=== PATIENT | male | born 1965 | race American Indian/Alaskan Native ===

== ENCOUNTER → 2019-12-04 | Emergency (ER) | payer MEDICAID ==
[~2019-12-04] VITALS: Ht 180.3 cm; Wt 89.4 kg
[~2019-12-04] MED LIST: ACCU-CHEK COMFORT CURVE STRIP VI SCH; CLINDAMYCIN 600MG IV 50 ML IV ONE; DAKI0.12 TOP; DEXTROSE (50%) 50ML SYRG IV PRN; InsuLIN REG 1unit/0.01ml Soln (100units/ml) IV ONE; InsuLIN REG 1unit/0.01ml Soln (100units/ml) SC SCH; LEVO750T64 PO; METF-372; MORPHINE SULF INJ 2 MG/ML SYRINGE 1ML IV PRN; NITROGLYCERIN 0.4 MG SL TAB SL PRN; PROMETHAZINE HCL 25 MG/ML 1ML IV PRN; SODIUM CHLORIDE 0.9% 1,000 ML IV ONE; SODIUM CHLORIDE 0.9% 1,000 ML IV SCH; VANCOMYCIN 1GM/250ML 250 ML IV ONE; VANCOMYCIN PER PHARMACY 0 MG IV SCH; levoFLOXacin 500MG 100 ML IV SCH; metroNIDAZOLE 500MG/100ML 100 ML IV SCH; traMADol HCL 50 MG TAB PO PRN
[2019-12-04 11:22] VITALS: BP 131/79
[2019-12-04 13:22] LABS: Basophils # (auto) 0 10 ^3/uL (0-0.2); Basophils % (auto) 0.5 % (0.0-2.0); Eosinophils # (auto) 0.1 10 ^3/uL (0-0.8); Eosinophils % (auto) 1.6 % (0.0-7.0); Hematocrit 36.4 % (41.0-53.0); Hemoglobin 11.7 g/dL (13.5-17.5); Lymphocytes # (auto) 1.2 10 ^3/uL (0.4-5.4); Mean Corpuscular Hemoglobin 28.1 pg (28.0-32.0); Mean Corpuscular Hgb Conc. 32.2 g/dL (32.0-36.0); Mean Corpuscular Volume 87.2 fL (80.0-100.0); Monocytes # (auto) 0.7 10 ^3/uL (0-1.3); Monocytes % (auto) 8.7 % (0.0-12.0); Neutrophils # (auto) 5.9 10 ^3/uL (1.6-8.6); Neutrophils % (auto) 74.2 % (37.0-80.0); Nucleated Red Blood Cells % 0.1 %; Platelet Count (auto) 411 10^3/uL (140-450); Red Blood Cells 4.17 10^6/uL (4.5-5.90); Red Cell Distribution Width 14.4 % (11.8-14.3)
[2019-12-04 13:41] LABS: Albumin 2.9 g/dL (3.4-5.0); Calcium 8.8 mg/dL (8.5-10.1); Potassium 4.1 mmol/L (3.5-5.1)
[2019-12-04 13:44] LABS: BUN/Creatinine Ratio 6.3
[2019-12-04 13:50] LABS: Bilirubin, Total 0.3 mg/dL (0.2-1.0); Total Protein 8.8 g/dL (6.4-8.2)
== END | disposition home or self-care (01) ==
LOC: ER 11:10 → UNDOADMIN 11:11 → OVERFLOW 11:11
DX: M86.8X7 Other osteomyelitis, ankle and foot (principal); E11.9 Type 2 diabetes mellitus without complications; I10 Essential (primary) hypertension; E78.5 Hyperlipidemia, unspecified; F17.210 Nicotine dependence, cigarettes, uncomplicated; Z79.899 Other long term (current) drug therapy
CPT/HCPCS: 36415; 73700; 80053; 82962; 83036; 85025; 85652; 96365; 96375; 99284; J1815; J3490